=== PATIENT | female | born 1955 | race Caucasian/White ===

== ENCOUNTER 2018-02-15 12:53 | Outpatient (CLI) | payer BC | END 2018-02-15 12:54 | disposition home or self-care (01) | LOC: BICMAMMO 12:53 | PROVIDERS: ATTEND Family Medicine | DX: Z12.31 Encounter for screening mammogram for malignant neoplasm of breast (principal) | CPT/HCPCS: 77063; 77067 ==

== ENCOUNTER 2019-02-19 13:58 | Outpatient (CLI) | payer MEDICARE, BC ==
--- NOTE | 2019-02-19 16:14 | MMO ---
Bilateral MAMMO Bilat Screen [facility]. CLINICAL HISTORY: Patient is 63 years old and is seen for screening. The patient has no family history of breast cancer. The patient has no personal history of cancer. VIEWS: The views performed were: bilateral craniocaudal with tomosynthesis and bilateral mediolateral oblique with tomosynthesis. FILMS COMPARED: The present examination has been compared to prior imaging studies performed at [facility] on 01/10/2016, 02/12/2017 and 02/15/2018, and at [facility] on 10/09/2012. This study has been interpreted with the assistance of computer-aided detection. MAMMOGRAM FINDINGS: There are scattered fibroglandular densities. There are stable benign appearing calcifications seen in both breasts. There are no suspicious masses, suspicious calcifications, or new areas of architectural distortion. IMPRESSION: THERE IS NO MAMMOGRAPHIC EVIDENCE OF MALIGNANCY. A ROUTINE FOLLOW-UP MAMMOGRAM IN 1 YEAR IS RECOMMENDED. THE RESULTS OF THIS EXAM WERE SENT TO THE PATIENT. ACR BI-RADS Category 2 - Benign finding MAMMOGRAPHY NOTE: 1. A negative mammogram report should not delay a biopsy if a dominant of clinically suspicious mass is present. 2. Approximately 10% to 15% of breast cancers are not detected by mammography. 3. Adenosis and dense breasts may obscure an underlying neoplasm. Reported by: DORIS PAIGE MD Electonically Signed: [id number]
== END 2019-02-19 13:59 | disposition home or self-care (01) ==
LOC: BICMAMMO 13:58
PROVIDERS: ATTEND Family Medicine
DX: Z12.31 Encounter for screening mammogram for malignant neoplasm of breast (principal)
CPT/HCPCS: 77063; 77067

== ENCOUNTER 2019-07-08 17:17 | Observation (INO) | payer MEDICARE, BC ==
[~2019-07-08 17:17] MED LIST: Iopamidol 370 76% 100 ML VIAL ONE
--- NOTE | 2019-07-08 18:20 | PDOC.FPRHP ---
- History of Present Illness Chief Complaint: Chest pain History of Present Illness: Ms. Forbes is a 64 yo F w pmhx sig for htn who presents from outside ED with chest pain she reports earlier today she was having chest pain, had a telehealth visit with her pcp during which the chest pain was increasing while talking about seeing a transportation mechanic/having a stress test. she describes her chest pain as an intermittent pressure/tenderness in her right upper chest that sometimes radiates down her left arm. she denies palpitations, JIMENEZ, exertional chest pain , syncope or hx of known heart disease. ED Course: asa, ekg, trop cbc,cmp - Allergies/Adverse Reactions Allergies Allergy/AdvReac Type Severity Reaction Status Date / Time Penicillins Allergy Verified 07/08/19 20:39 codeine AdvReac Verified 07/08/19 20:39 - Home Medications Medication Instructions Recorded Confirmed Type Citalopram [CeleXA] 40 mg PO DAILY 07/08/19 07/08/19 History Esomeprazole Magnesium 40 mg PO DAILY 07/08/19 07/08/19 History Hydrochlorothiazide 25 mg PO DAILY 07/08/19 07/08/19 History Methocarbamol 1,000 mg PO BID 07/08/19 07/08/19 History Naproxen 500 mg PO BID PRN 07/08/19 07/08/19 History Oxybutynin [Ditropan] 5 mg PO BID 07/08/19 07/08/19 History - History PMHx: HTN, GERD, anxiety PSHx: none FHx: nc Social: no TAD - Review of Systems General: denies: fever/chills, weight/appetite/sleep changes, fatigue Eyes: denies: vision changes Respiratory: denies: cough, congestion, shortness of breath Cardiovascular: reports: chest pain. denies: palpitation, edema, paroxysmal nocturnal dyspnea, orthopnea Gastrointestinal: denies: nausea, vomiting, diarrhea, constipation Genitourinary: denies: dysuria Skin: denies: rashes, lesions Musculoskeletal: reports: pain, tenderness. denies: stiffness, swelling Neurological: denies: numbness, syncope - Vital signs 164/109, Pulse: 78, Resp: 18, Pain: 7, O2 sat: 98 on (Room Air) - Physical Exam Constitutional: NAD, awake, alert and oriented HEENT: normocephalic and atraumatic, EOMI, grossly normal vision, grossly normal hearing Neck: trachea midline Chest: other (ttp over RUE) Heart: RRR, normal S1/S2, no murmurs/rubs/gallops Lungs: CTAB, no respiratory distress, good air movement Abdomen: soft, non-tender, bowel sounds present Musculoskeletal: normal structure, normal tone Neurological: no focal deficit, CN II-XII intact Skin: no rash/lesions, good turgor Heme/Lymphatic: no unusual bruising or bleeding Psychiatric: normal mood and affect FMR H&P: A/P - Problem List (1) Atypical chest pain Current Visit: Yes Status: Acute Code(s): R07.89 - OTHER CHEST PAIN (2) HTN (hypertension) Current Visit: Yes Status: Acute Code(s): I10 - ESSENTIAL (PRIMARY) HYPERTENSION (3) Anxiety Current Visit: Yes Status: Acute Code(s): F41.9 - ANXIETY DISORDER, UNSPECIFIED (4) GERD (gastroesophageal reflux disease) Current Visit: Yes Status: Acute Code(s): K21.9 - GASTRO-ESOPHAGEAL REFLUX DISEASE WITHOUT ESOPHAGITIS - Plan atypical chest pain - ekg/trop wnl, heart score of 4 - asa given - nm stress in am, cards consult pending results lung mass - seen on cxr - CT chest pending htn - continue home meds gerd - continue home meds anxiety - possibly contributing, continue home meds ppx: lovenox pcp: natalia code: full dispo: admit tele obs, LOS<48 FMR H&P: Upper Level - Plan Date/Time: 07/08/198 I, [], have evaluated this patient and agree with findings/plan as outlined by exercise science internship resident. Pertinent changes/additions are listed here. Addendum - Attending - Attending Attestation Date/Time: 07/08/19 3776 I personally evaluated the patient and discussed the management with Dr. Alexander I agree with the History, Examination, Assessment and Plan documented above with any addition or exceptions noted below - 64 yo F with h/o HTN and GERD who presents from outside ED with chest pain. She reports earlier today she was having chest pain, had a telehealth visit with her pcp during which the chest pain was increasing while talking about seeing a transportation mechanic/having a stress test. she describes her chest pain as an intermittent pressure/tenderness in her right upper chest that sometimes radiates down her left arm. She denies palpitations, JIMENEZ, exertional chest pain, syncope or hx of known heart disease. She does report additional episdoe of chest pain over the weekend. Tool baby ASA and pain improved. PMH/PSH/Meds/SH reviewed and agree with resident's documentation. Afebrile BP 147/78, P85 RR14 Exam repeated by me and agree with resident's findings including reproducible chest pain over area of ribs 1- 3 on left anterior chest. Labs H/H=14.9/44.0, Civ=674, HZ=829, K=3.5, BUN?Cr=13/ 0.78, trop <0.010 -> 0.018. CXR- absence of most of the left first rib, possible congenital variant versus possible chest wall mass. CTA- No PE; no chest wall mass; Contrast administration in Left arm produced streak artifact limiting evaluation of anterior aspect of left upper ribs. A/P: 1) Chest pain - Place in obs; will trend cardiac enzymes. Stress test in AM. 2) ?Rib abnormality - consider repeat CT chest without contrast to evaluate area of pain/ tenderness. 3) HTN continue home meds.
[2019-07-08 18:53] LABS: Troponin I 0.018 ng/mL (< 0.028)
--- NOTE | 2019-07-08 19:02 | CT ---
CTA OF THE CHEST WITH CONTRAST: 07/08/19 COMPARISON: None. HISTORY: Left upper chest pain and chest wall mass. TECHNIQUE: Multiple contiguous axial images were obtained in the CTA of the chest with contrast per pulmonary em bolism protocol. 3D oblique MIP reformats and direct coronal reformats were performed. FINDINGS: The pulmonary arteries are well opacified without filling defects to suggest pulmonary emboli. The he at is upper limits of normal in size without focal cardiac abnormality. No hilar or mediastinal lymph adenopathy are seen. Emphysematous changes are seen in the lungs. No focal infiltrates are seen. No pneumothorax or pleur al effusions are seen. There is a 3 to 4 mm nodule in the right lower lobe on image 61 of 121. A 2 to 3 mm nodule is seen in the left upper lobe on image 15 of 121. There is a lobulated cyst in the liver. The other visualized subdiaphragmatic structures are unremark able. Degenerative changes are seen in the spine. No chest wall mass is seen. Contrast administration of th e left arm produces streak artifact limiting evaluation of anterior aspect of the left upper ribs. IMPRESSION: 1. No evidence of pulmonary thromboembolism. 2. Hepatic cyst. 3. Small pulmonary nodules as above. POS: EAA
[2019-07-08] MEDS ORDERED: Nitroglycerin 0.4 MG TAB (25 Tab Bottle) PO PRN (20:29)
[2019-07-08] MEDS ORDERED: Acetaminophen 325 MG TAB PO PRN (20:29)
[2019-07-08] MEDS ORDERED: Ondansetron ODT 4 MG TAB PO PRN (20:29)
[2019-07-08] MEDS ORDERED: Ondansetron PF 4 MG/2 ML Vial IVP PRN (20:29)
[2019-07-08] MEDS ORDERED: Acetaminophen 650 MG Suppository PR PRN (20:29)
[2019-07-08 20:44] VITALS: BMI 28.5
[2019-07-08 22:09] LABS: Troponin I Less than 0.010 ng/mL (< 0.028)
[2019-07-09 00:54] LABS: Troponin I Less than 0.010 ng/mL (< 0.028)
[2019-07-09 05:04] LABS: Cardiac Risk 3.5 (Less than 4.5)
--- NOTE | 2019-07-09 06:56 | PDOC.FM ---
- Subjective Subjective: Patient sitting up at bedside this AM, states she is anxiously awaiting her stress test today. Says she continues to feel intermittent chest pressure on her left upper chest, worsens when she touches the area. Denies any cough, congestion, SOB, nausea, abdominal pain, indigestion. - Objective MAR Reviewed: Yes Vital Signs & Weight: Vital Signs (12 hours) Temp Pulse Resp BP Pulse Ox 07/09/19 04:17 97.3 F L 62 16 114/78 97 07/09/19 00:58 96 07/08/19 23:49 98.6 F 85 14 100/58 L 97 07/08/19 20:19 97.2 F L 75 17 147/83 H 96 Weight Weight 75.296 kg Phys Exam - Physical Examination Constitutional: NAD HEENT: moist MMs, sclera anicteric Neck: supple, full ROM Respiratory: no wheezing, no rhonchi, clear to auscultation bilateral Cardiovascular: RRR, no significant murmur Gastrointestinal: soft, positive bowel sounds Musculoskeletal: no edema, pulses present severe TTP over left upper chest from clavicle to approx. rib 4 Neurological: normal sensation, moves all 4 limbs Psychiatric: normal affect, A&O x 3 Skin: no rash, normal turgor Dx/Plan (1) Anxiety Code(s): F41.9 - ANXIETY DISORDER, UNSPECIFIED Status: Acute (2) Atypical chest pain Code(s): R07.89 - OTHER CHEST PAIN Status: Acute (3) HTN (hypertension) Code(s): I10 - ESSENTIAL (PRIMARY) HYPERTENSION Status: Acute Qualifiers: Hypertension type: essential hypertension Qualified Code(s): I10 - Essential (primary) hypertension - Plan Plan: Patient is a 64 yo Female with PMHx of Anxiety, HTN, & GERD who presents with atypical chest pain: #Atypical chest pain - pain is reproducible with significant, severe pain with palpation of left upper chest on exam - EKG wnl, trended troponins all wnl, heart score of 4 - ASA given - plan for nm stress this AM - consider Cardiology consult pending results of stress test #Lung vs Chest Wall Mass, suspected - CXR shows absence of most of left 1st rib, could be congenital vs suggestive of a possible chest wall mass in that area report reads: the absence of most of the left first rib could represent a congenital variant. Given the history of left upper chest pain and arm symptoms , however, this must be viewed with some degree of suspicion regarding the possibility of a chest wall mass. CT chest may also be helpful for further characterization. - CTA chest with PE protocol was ordered by ED physician, this was unable to assess area of concern report reads: contrast administration of the left arm produces streak artifact limiting evaluation of anterior aspect of the left upper ribs - CT chest w/o contrast ordered #HTN - continue home meds #GERD - continue home meds #Anxiety - possibly contributing to chest pain - continue home meds Diet: NPO for stress test VTE: Lovenox Code status: FULL PCP: [facility] Dispo: Stable, admitted to obs on telemetry unit. Plan for stress this AM. Anticipate discharge in <48 hours. Addendum - Attending - Attending Attestation Date/Time: 07/09/19 8884 I personally evaluated the patient and discussed the management with Dr. Healy I agree with the History, Examination, Assessment and Plan documented above with any addition or exceptions noted below. NM stress test. Dispo pending results. Repeat CT chest outpatient per rads recs.
[2019-07-09] MEDS ORDERED: Enoxaparin Sodium 40 MG/0.4 ML SYRINGE SC SCH (09:00)
[2019-07-09] MEDS ORDERED: Aspirin 325 mg Enteric Coated Tablet PO SCH (09:00)
[2019-07-09] MEDS ORDERED: ADENOSINE 60 MG/20 ML VIAL ONE (09:04)
[2019-07-09 12:19] VITALS: BP 121/76; TEMP 98.3
--- NOTE | 2019-07-09 12:36 | NM ---
CARDIAC SPECT: CLINICAL HISTORY: 64-year-old female with chest pain and hypertension. TECHNIQUE: A myocardial perfusion scan was performed using the single isotope one day protocol with technetium-9 9m sestamibi. 10 mCi were injected intravenously for the rest exam followed by 31 mCi for the stress exam. Pharmacologic stress with Adenosine was monitored and interpreted by Cinthya Rod NP. FINDINGS: Fairly homogeneous tracer distribution is seen in the myocardial segments on stress and rest images w ithout fixed or reversible defects. GATED SPECT LVEF: 95%. WALL MOTION EXAM: Normal. IMPRESSION: Normal myocardial perfusion scan. POS: CHANTALA
--- NOTE | 2019-07-09 17:59 | DIS ---
DATE OF ADMISSION: 07/08/2019 DATE OF DISCHARGE: 07/09/2019 ADMITTING ATTENDING: Mayuri Ibarra MD DISCHARGE ATTENDING: Omero Parker MD CONSULTS: None. PROCEDURES: 1. Chest x-ray on July 08, 2019: Right first rib is hypoplastic. Left first rib is mostly not visualized. It appears that the most posterior portion is present , although the lateral and anterior portion are not visible. Parenchymal lung mass not evident. The absence of most of the left first rib could represent a congenital variant. Given the history of left upper chest pain and arm symptoms, however, this must be viewed with some degree of suspicion regarding the possibility of a chest wall mass. CT chest may be helpful for further characterization. 2. Chest CTA with PE protocol on July 08, 2019: Emphysematous changes are seen in the lungs. No focal infiltrates are seen. There is a 3 to 4 mm nodule in the right lower lobe. A 2 to 3 mm nodule is seen in the left upper lobe. There is a lobulated cyst in the liver. Contrast administration of the left arm produces streak artifact limiting evaluation of anterior aspect of the left upper ribs. 3. Cardiac stress test on July 09, 2019: Normal myocardial perfusion scan. PRIMARY DIAGNOSIS: Costochondritis. SECONDARY DIAGNOSES: 1. Left chest wall pain. 2. Hypertension. 3. Gastroesophageal reflux disease. 4. Anxiety. DISCHARGE MEDICATIONS: 1. Naproxen 500 mg p.o. b.i.d. for 1 week. 2. Methocarbamol 1000 mg p.o. b.i.d. 3. Citalopram 40 mg p.o. daily. 4. Oxybutynin 5 mg p.o. b.i.d. 5. Hydrochlorothiazide 25 mg p.o. daily. 6. Esomeprazole magnesium 40 mg p.o. daily. DISCONTINUED MEDICATIONS: None. HISTORY OF PRESENT ILLNESS/HOSPITAL COURSE: The patient is a 64-year-old female with past medical history of hypertension, who presents from the [facility] as a transfer to [facility] with complaints of chest pain. The patient reported that early in the day on July 07, she was having chest pain. She had a tele health visit with her PCP, Dr. Tessy Carbajal, during which the chest pain was increasing while talking about seeing a loading inspector. During this description of the stress test, the patient reported to Dr. Carbajal that her chest pain was an intermittent pressure or tenderness in her left upper chest that sometimes radiated down into her left arm. At that time, she denied any palpitations, dyspnea on exertion, exertional chest pain, syncope, or history of known heart disease. In the emergency department, she was given aspirin and EKG was completed, which was normal. Troponins were trended with 3 negative values. Upon arrival to the floor, the patient was continued to be monitored by placing on telemetry. She did well overnight, stating that at times it seemed like her anxiety was increasing her chest pain. In the morning of July 08, she did have a cardiac stress test completed which ultimately resulted as normal. The patient's chest pain continued to be reproducible with significant tenderness upon the left upper chest wall from the clavicle to approximately left rib 4. It was suspected that this pain was secondary to costochondritis. Low suspicion for any cardiac etiology at this point. Of note, the patient was noted incidentally on chest x-ray to have a rib abnormality of left first rib. Chest CTA with PE protocol was ordered by the ER physician, but was unsuccessful in evaluating the area of concern in the left upper chest. It is recommended after discussion with the radiologist that the patient have a repeat chest CT without contrast in one week for further evaluation of this area. However, at this point, it is suspected that this is a congenital abnormality. DISPOSITION: Stable. DISCHARGE INSTRUCTIONS: 1. Location: Home. 2. Diet: Heart healthy. 3. Activity: As tolerated. 4. Follow up with Dr. Carbajal in 5 to 7 days for hospital followup. 5. The patient will need a repeat chest CT without contrast in approximately one week. Job ID: [id number] [facility]
--- NOTE | 2019-07-11 14:08 | EKG ---
Test Reason : CHEST PAIN Blood Pressure : / mmHG Vent. Rate : 068 BPM Atrial Rate : 068 BPM P-R Int : 150 ms QRS Dur : 074 ms QT Int : 434 ms P-R-T Axes : 051 -36 027 degrees QTc Int : 461 ms Normal sinus rhythm Left axis deviation Inferior infarct , age undetermined Abnormal ECG Confirmed by LUIS CARLOS HAWKINS ([id number]), editor magazine VIJAY ZUNIGA ([id number]) on 07/11/2019 2:07:58 PM Referred By: Confirmed By:LUIS CARLOS HAWKINS
== END 2019-07-09 17:15 | disposition home or self-care (01) ==
LOC: ERS 17:17 → 2SE 18:04
PROVIDERS: ADMIT Family Medicine; ATTEND Family Medicine
DX: M94.0 Chondrocostal junction syndrome [Tietze] (principal); I10 Essential (primary) hypertension; F41.9 Anxiety disorder, unspecified; K21.9 Gastro-esophageal reflux disease without esophagitis; R91.8 Other nonspecific abnormal finding of lung field; Z79.899 Other long term (current) drug therapy; Z88.0 Allergy status to penicillin; Z88.5 Allergy status to narcotic agent
CPT/HCPCS: 71275; 78452; 80061; 84484 ×2; 93005; 93017; 94760; 96372; 99285; A9500; G0378 ×3; Q9967; 36415; J0153; J1650

== ENCOUNTER 2020-03-23 15:07 | Outpatient (CLI) | payer MEDICARE, BC ==
--- NOTE | 2020-03-23 16:35 | MMO ---
Bilateral MAMMO Bilat Screen [facility]. CLINICAL HISTORY: Patient is 64 years old and is seen for screening. The patient has no family history of breast cancer. The patient has no personal history of cancer. VIEWS: The views performed were: bilateral craniocaudal with tomosynthesis and bilateral mediolateral oblique with tomosynthesis. FILMS COMPARED: The present examination has been compared to prior imaging studies performed at [facility] on 01/10/2016, 02/12/2017, 02/15/2018 and 02/19/2019. This study has been interpreted with the assistance of computer-aided detection. MAMMOGRAM FINDINGS: There are scattered fibroglandular densities. Benign calcifications are noted bilaterally. There are no suspicious masses, suspicious calcifications, or new areas of architectural distortion. IMPRESSION: THERE IS NO MAMMOGRAPHIC EVIDENCE OF MALIGNANCY. A ROUTINE FOLLOW-UP MAMMOGRAM IN 1 YEAR IS RECOMMENDED. THE RESULTS OF THIS EXAM WERE SENT TO THE PATIENT. ACR BI-RADS Category 2 - Benign finding MAMMOGRAPHY NOTE: 1. A negative mammogram report should not delay a biopsy if a dominant of clinically suspicious mass is present. 2. Approximately 10% to 15% of breast cancers are not detected by mammography. 3. Adenosis and dense breasts may obscure an underlying neoplasm. Reported by: MARILYNN DICKENS MD Electonically Signed: [id number]
== END 2020-03-23 15:08 | disposition home or self-care (01) ==
LOC: BICMAMMO 15:07
PROVIDERS: ATTEND Family Medicine
DX: Z12.31 Encounter for screening mammogram for malignant neoplasm of breast (principal)
CPT/HCPCS: 77063; 77067

== ENCOUNTER 2022-06-22 13:36 | Outpatient (CLI) | payer MEDICARE | END 2022-06-22 13:37 | disposition home or self-care (01) | LOC: BICMAMMO 13:36 | PROVIDERS: ATTEND Family Medicine | DX: Z12.31 Encounter for screening mammogram for malignant neoplasm of breast (principal); R92.1 Mammographic calcification found on diagnostic imaging of breast; Z91.89 Other specified personal risk factors, not elsewhere classified | CPT/HCPCS: 77063; 77067 ==

== ENCOUNTER 2023-10-15 14:22 | Outpatient (CLI) | payer MEDICARE | END 2023-10-15 14:23 | disposition home or self-care (01) | LOC: BICMAMMO 14:22 | PROVIDERS: ATTEND Family Medicine | DX: Z12.31 Encounter for screening mammogram for malignant neoplasm of breast (principal); M85.852 Other specified disorders of bone density and structure, left thigh; M81.0 Age-related osteoporosis without current pathological fracture; Z78.0 Asymptomatic menopausal state | CPT/HCPCS: 77063; 77067; 77080 ==